=== PATIENT | male | born 1950 | race Caucasian/White ===

== ENCOUNTER 2017-02-15 16:15 | Inpatient (IN) | payer MEDICARE, OTHER ==
[~2017-02-15] VITALS: Ht 182.9 cm; Wt 90.7 kg
[~2017-02-15 16:15] MED LIST: ADVAIR 250-501 EACH INH; ASPIRIN325 MG PO; ATENOLOL100 MG PO; CARDURA XL8 MG PO; CARVEDILOL25 MG PO; CLARITIN10 M2 PO; CLONIDINE HCL0.1 MG PO; DILTIAZEM 24HR120 MG PO; FEROSUL325 MG PO; FISH OIL 1,2001 EAC5 PO; FUROSEMIDE40 MG PO; HYDROCORTISONE59 ML TOP; LISINOPRIL40 MG PO; MEDROL4 M1 PO; MULTI-DAY PLUS1 EAC1 PO; NICORETTE4 M1 BUCCAL; OSTERA TABLET1 EACH PO; PROAIR HFA8.5 GM INH; THIAMINE HCL100 MG PO
--- OUTSIDE RECORDS SUMMARY | 2017-02-15 17:17 | XMS ---
Demographics + + + | Address | [address] | | | [place] [address] | + + + | Preferred Language | Unknown | + + + | Marital Status | Unknown | + + + | Roman Catholic Affiliation | Unknown | + + + | Race | Unknown | + + + | Ethnic Group | Unknown | + + + Author + + + | Author | [facility] | + + + | Organization | [facility] | + + + | Address | [address] | | | [place] [address] | + + + | Phone | | + + + Care Team Providers + + + + | Care Stone Derrickman And Rigger Name | Role | Phone | + + + + Unavailable | Unavailable | + + + + PROBLEMS + + + + + + + + | Type | Condition | ICD9-CM | [id number] | Onset | Condition | SNOMED | | | | Code | Code | Dates | Status | Code | + + + + + + + + | Problem | Alcoholic | | K70.10 | | Active | 5009641 | | | hepatitis | | | | | | | | without | | | | | | | | ascites | | | | | | + + + + + + + + | Problem | Cervical | M48.02 | | | Active | 59484778 | | | spinal | | | | | | | | stenosis | | | | | | + + + + + + + + | Problem | Left foot | M21.372 | | | Active | [id number] | | | drop | | | | | [address] | + + + + + + + + | Problem | Thiamine | | E51.9 | | Active | 592319089 | | | deficiency | | | | | | | | , | | | | | | | | unspecifie | | | | | | | | d | | | | | | + + + + + + + + | Problem | Anemia in | | D63.1 | | Active | 555165152 | | | chronic | | | | | | | | kidney | | | | | | | | disease | | | | | | + + + + + + + + | Problem | Low serum | R79.89 | | | Active | 604324621 | | | vitamin D | | | | | | + + + + + + + + | Problem | Diastolic | I50.30 | | | Active | 636435146 | | | heart | | | | | | | | failure | | | | | | + + + + + + + + | Problem | Chronic | | N18.3 | | Active | 340504597 | | | kidney | | | | | | | | disease, | | | | | | | | stage 3 | | | | | | + + + + + + + + | Problem | Hyperurice | | E79.0 | | Active | 47014992 | | | vivi | | | | | | + + + + + + + + | Problem | COPD | | J44.9 | | Active | 94783838 | | | (chronic | | | | | | | | obstructiv | | | | | | | | e | | | | | | | | pulmonary | | | | | | | | disease) | | | | | | + + + + + + + + | Problem | Atrial | I48.92 | | | Active | 4061037 | | | flutter | | | | | | + + + + + + + + | Problem | HTN | | I10 | | Active | 62337559 | | | (hypertens | | | | | | | | ion) | | | | | | + + + + + + + + | Assessment | HTN | | I10 | 26 November, | Active | 36601266 | | | (hypertens | | | 2017 | | | | | ion) | | | | | | + + + + + + + + | Problem | Colonic | | K63.5 | | Active | 39763023 | | | polyp | | | | | | + + + + + + + + ALLERGIES + + + + +--------+ | Substance | Reaction | Event Type | Date | Status | + + + + +--------+ | Banana | Unknown | Non Drug | November, | Active | | | | Allergy | | | + + + + +--------+ | Bee Stings | Unknown | Non Drug | November, | Active | | | | Allergy | | | + + + + +--------+ SOCIAL HISTORY No smoking Hx information available PLAN OF CARE VITAL SIGNS + + + + | Height | 6 ft 0 in in | 2016-12-01 | + + + + | Weight | 185.0 lbs | 2016-12-01 | + + + + | BMI | 25.09 kg/m2 | 2016-12-01 | + + + + | Heart Rate | 47 /min | 2016-12-01 | + + + + | Blood pressure systolic | 137 mm Hg | 2016-12-01 | + + + + | Blood pressure diastolic | 66 mm Hg | 2016-12-01 | + + + + MEDICATIONS + + + + + + + +--------+ | Medicati | Instruct | Dosage | Frequenc | Start | End Date | Duration | Status | | on | ions | | y | Date | | | | + + + + + + + +--------+ | Cardura | Orally | 1 tablet | | | | | Active | | 8 MG | Once a | | | | | | | | | day - | | | | | | | | | FOR HIGH | | | | | | | | | BLOOD | | | | | | | | | PRESSURE | | | | | | | + + + + + + + +--------+ | Fish Oil | | | 12h | | | | Active | + + + + + + + +--------+ | Lisinopr | Orally | 1 tablet | 24h | 25 Apr, | | | Active | | il 40 mg | Once a | | | 2015 | | | | | | day | | | | | | | + + + + + + + +--------+ | Thiamine | Orally | 1 tablet | 12h | 06 Feb, | | | Active | | HCl 100 | Twice a | | | 2016 | | | | | mg | day | | | | | | | + + + + + + + +--------+ | Diltiaze | Orally | 1 tablet | 24h | | | | Active | | m HCl | once | before | | | | | | | 120 MG | daily | meals | | | | | | + + + + + + + +--------+ | Albutero | Inhalati | 2 puffs | 4h | 28 November, | | 30 | Active | | l | on every | as | | 2016 | | day(s) | | | Sulfate | 4 hrs | needed | | | | | | | HFA 108 | | | | | | | | | (90 | | | | | | | | | Base) | | | | | | | | | MCG/ACT | | | | | | | | + + + + + + + +--------+ | Vitamin | Orally | 2 tablet | 24h | Aug, | Dec, | 30 | Active | | D | Once a | | | 2017 | 2017 | day(s) | | | (Choleca | day | | | | | | | | lciferol | | | | | | | | | ) 1000 | | | | | | | | | UNIT | | | | | | | | + + + + + + + +--------+ | Advair | Inhalati | 1 puff | 12h | | | | Active | | Diskus | on Twice | | | | | | | | 250-50 | a day | | | | | | | | MCG/DOSE | | | | | | | | + + + + + + + +--------+ | Carvedil | Orally | 1 tablet | | | | | Active | | ol 25 MG | Twice a | | | | | | | | | day for | | | | | | | | | Atrial | | | | | | | | | fibrilla | | | | | | | | | tion, | | | | | | | | | High | | | | | | | | | blood | | | | | | | | | pressure | | | | | | | + + + + + + + +--------+ | Multi | | | | | | | Active | | Vitamin | | | | | | | | | Daily | | | | | | | | + + + + + + + +--------+ | Lasix 40 | Orally | 1 tablet | | | | | Active | | mg | To be | | | | | | | | | taken | | | | | | | | | twice a | | | | | | | | | day, | | | | | | | | | once in | | | | | | | | | the | | | | | | | | | morning | | | | | | | | | and once | | | | | | | | | in the | | | | | | | | | afternoo | | | | | | | | | n - | | | | | | | | | DIURETIC | | | | | | | + + + + + + + +--------+ | Hydrocor | External | 1 | 12h | 10 Feb, | | | Active | | tisone | ly Twice | applicat | | 2017 | | | | | 2.5 % | a day | ion to | | | | | | | | | affected | | | | | | | | | area | | | | | | + + + + + + + +--------+ | Aspirin | Oral | | 24h | | | | Active | | 325 mg | daily | | | | | | | + + + + + + + +--------+ RESULTS No Results PROCEDURES + + + + + | Procedure | Date Ordered | Related Diagnosis | Body Site | + + + + + | Office Visit, Est | December 01, 2016 | | | | Pt., Level 3 | | | | + + + + + IMMUNIZATIONS No Known Immunizations"
--- NOTE | 2017-02-15 19:50 | NUR ---
PT ARRIVED VIA [facility] AT 0. ASSESSMENT COMPLETED. PT IS ALERT/ORIENTED, SLOW TO RESPOND. LUNGS CLEAR, DIM IN BASES, RA. HR IRREGULAR, PLACED ON TELE #9. BOWEL TONES ACTIVE, DENIES NAUSEA. DENIES PAIN. SKIN IS DRY, SCATTERED BRUISES NOTED. GROIN APPEARS REDDENED. IV PATENT, INFUSING WNL. DENIES NEEDS AT THIS TIME.
--- NOTE | 2017-02-15 20:30 | NUR ---
PT SAT AT SIDE OF BED AND ATTEMPTED TO USE URINAL, WAS UNABLE. REMOVED SHORTS AND UNDERWEAR, CLEANSED SKIN WITH BARRIER WIPES. PT ATTEMPTED TO USE URINAL AGAIN ONCE BACK IN BED AND WAS ABLE TO VOID 200ML, URINE SAMPLE SENT.
--- NOTE | 2017-02-15 21:30 | NUR ---
FIRST UNIT OF BLOOD STARTED AT THIS TIME, BLOOD CHECKED WITH SECOND RN, MORIAH. CONSENT IN CHART. WILL CONTINUE TO MONITOR.
--- NOTE | 2017-02-15 21:45 | NUR ---
RECHECKED PT'S VITAL SIGNS, NO S/SX OF REACTION. RATE INCREASED ON PUMP. PT RESTING WITH EYES CLOSED, DENIES FURTHER REQUESTS.
--- NOTE | 2017-02-15 23:14 | NUR ---
PT CURRENTLY SLEEPING, NO APPARENT DISTRESS. RESPIRATIONS ARE EVEN AND UNLABORED. TELE #9, HR:75 AND SINUS RHYTHM. BLOOD CONTINUES TO INFUSE WNL. WILL CONTINUE TO MONITOR.
--- NOTE | 2017-02-16 00:05 | NUR ---
FIRST UNIT OF BLOOD COMPLETED. PT TOLERATED WELL. RESTING COMFORTABLY. NO S/SX OF ADVERSE REACTION. WILL CONTINUE TO MONITOR.
--- NOTE | 2017-02-16 00:20 | NUR ---
SECOND UNIT OF BLOOD STARTED AT THIS TIME, CHECKED WITH SECOND RNMORIAH. ASSESSMENT COMPLETED. NO CHANGES FROM PREVIOUS ASSESSMENT. WILL CONTINUE TO MONITOR.
--- NOTE | 2017-02-16 00:35 | NUR ---
VITAL SIGNS TAKEN. NO S/SX OF ADVERSE REACTION. RATE INCREASED. PT DENIES REQUESTS AT THIS TIME, RESTING COMFORTABLY.
--- NOTE | 2017-02-16 02:10 | NUR ---
PT CALLED AND REQUESTED TO USE THE BATHROOM, STATED HE FELT LIKE HE NEEDED TO HAVE A BM. UP TO [facility] WITH 2-PA PIVOT TRANSFER. PT TOLERATED WELL. PT SAT ON COMMODE AND VOIDED BUT WAS UNABLE TO HAVE BM. RETURNED TO BED. DENIES REQUESTS AT THIS TIME.
--- NOTE | 2017-02-16 02:45 | NUR ---
SECOND UNIT OF BLOOD COMPLETED. PT DENIES SOB, NO S/SX OF REACTION. PT DENIES NEEDS AT THIS TIME, WILL CONTINUE TO MONITOR.
--- NOTE | 2017-02-16 04:51 | NUR ---
ASSESSMENT COMPLETED. ORIENTED. DENIES PAIN. LUNGS CLEAR/DIMINISHED, RA. HR IRREGULAR, TELE #9. BOWEL TONES ACTIVE, DENIES NAUSEA. SKIN DRY, LOTION APPLIED TO HIS BACK. EDEMA PRESENT IN BILATERAL FEET. IV PATENT, INFUSING WNL. PT RESTING, DENIES NEEDS AT THIS TIME.
--- NOTE | 2017-02-16 04:58 | NUR ---
E.D. ADMIT. ALERT/ORIENTED. DENIES PAIN AND NAUSEA. RECEIVED 2 UNITS PRBC'S, 1 UNIT REMAINS ON HOLD, PT TOLERATED WELL. LUNGS DIMINISHED, RA. TELE #9, IRREGULAR HR. EDEMA IN BILATERAL FEET. REDDENED GROIN, SCHEDULED POWDER UNAVAILABLE DURING NIGHT, BARRIER WIPES AND CREAM USED. VOIDING QS. 2-PA WITH PIVOT TRANSFER TO [facility], WEAK, HAS BEEN USING MOTORIZED WHEELCHAIR AT HOME. IV PATENT, NS @75. SCHEDULED NEBS. DAILY ETOH DRINKER, CAN HAVE BEER WITH MEALS.
--- OUTSIDE RECORDS SUMMARY | 2017-02-16 06:05 | XMS ---
Demographics + + + | Address | [address] | | | [place] [address] | + + + | Preferred Language | Unknown | + + + | Marital Status | Unknown | + + + | Mormonism Affiliation | Unknown | + + + | Race | Unknown | + + + | Ethnic Group | Unknown | + + + Author + + + | Author | [facility] | + + + | Organization | [facility] | + + + | Address | [address] | | | [place] [address] | + + + | Phone | | + + + Care Team Providers + + + + | Care Registered Appraiser Name | Role | Phone | + + + + Unavailable | Unavailable | + + + + PROBLEMS + + + + + + + + | Type | Condition | ICD9-CM | [id number] | Onset | Condition | SNOMED | | | | Code | Code | Dates | Status | Code | + + + + + + + + | Problem | Alcoholic | | K70.10 | | Active | 2732165 | | | hepatitis | | | | | | | | without | | | | | | | | ascites | | | | | | + + + + + + + + | Problem | Cervical | M48.02 | | | Active | 38531637 | | | spinal | | | | | | | | stenosis | | | | | | + + + + + + + + | Problem | Left foot | M21.372 | | | Active | [phone] | | | drop | | | | | [address] | + + + + + + + + | Problem | Thiamine | | E51.9 | | Active | 688589571 | | | deficiency | | | | | | | | , | | | | | | | | unspecifie | | | | | | | | d | | | | | | + + + + + + + + | Problem | Anemia in | | D63.1 | | Active | 592932406 | | | chronic | | | | | | | | kidney | | | | | | | | disease | | | | | | + + + + + + + + | Problem | Low serum | R79.89 | | | Active | 455451554 | | | vitamin D | | | | | | + + + + + + + + | Problem | Diastolic | I50.30 | | | Active | 600558552 | | | heart | | | | | | | | failure | | | | | | + + + + + + + + | Problem | Chronic | | N18.3 | | Active | 134700542 | | | kidney | | | | | | | | disease, | | | | | | | | stage 3 | | | | | | + + + + + + + + | Problem | Hyperurice | | E79.0 | | Active | 97151352 | | | vivi | | | | | | + + + + + + + + | Problem | COPD | | J44.9 | | Active | 65906696 | | | (chronic | | | [...] | I48.92 | | | Active | 4316163 | | | flutter | | | | | | + + + + + + + + | Problem | HTN | | I10 | | Active | 92000825 | | | (hypertens | | | | | | | | ion) | | | | | | + + + + + + + + | Assessment | HTN | | I10 | 19 Apr, | Active | 72009384 | | | (hypertens | | | 2017 | | | | | ion) | | | | | | + + + + + + + + | Problem | Colonic | | K63.5 | | Active | 19575314 | | | polyp | | | | | | + + + + + + + + ALLERGIES + + + + +--------+ | Substance | Reaction | Event Type | Date | Status | + + + + +--------+ | Banana | Unknown | Non Drug | Oct, | Active | | | | Allergy | | | + + + + +--------+ | Bee Stings | Unknown | Non Drug | Oct, | Active | | | | Allergy | | | + + + + +--------+ SOCIAL HISTORY No smoking Hx information available PLAN OF CARE VITAL SIGNS + + + + | Height | 6 ft 0 in in | 2016-10-25 | + + + + | Weight | 189.7 lbs | 2016-10-25 | + + + + | BMI | 25.73 kg/m2 | 2016-10-25 | + + + + | Temperature | 98.6 degrees Fahrenheit | 2016-10-25 | + + + + | Heart Rate | 52 /min | 2016-10-25 | + + + + | Blood pressure systolic | 146 mm Hg | 2016-10-25 | + + + + | Blood pressure diastolic | 80 mm Hg | 2016-10-25 | + + + + MEDICATIONS + + + + + + + +--------+ | Medicati | Instruct | Dosage | Frequenc | Start | End Date | Duration | Status | | on | ions | | y | Date | | | | + + + + + + + +--------+ | Vitamin | Orally | 2 tablet | 24h | b, | 6 Jasen, | 30 | Active | | D [...] | on every | as | | 2015 | | day(s) | | | Sulfate [...] | ly Twice | applicat | | 2016 | | | | | 2.5 % [...] | + + + + + | Est Level III | October 25, 2016 | | | | Intermediate | | | | + + + + + IMMUNIZATIONS No Known Immunizations"
--- NOTE | 2017-02-16 07:19 | EKG ---
[facility] [address] [place] [address] Signed Atrial flutter with variable AV block Rightward axis Low voltage QRS Possible Inferior infarct (cited on or before 25-AUG-2016) ST \T\ T wave abnormality, consider lateral ischemia Abnormal ECG When compared with ECG of 25-AUG-2016 12:04, QRS axis shifted right Non-specific change in ST segment in Inferior leads Nonspecific T wave abnormality now evident in Inferior leads T wave inversion now evident in Anterolateral leads Confirmed by KANDI AGUERO MD ([id number]) on 02/16/2017 7:19:10 AM Electronically Signed By: KANDI AGUERO MD 02/16/17 0719 PATIENT NAME: ARABELLA GUZMAN Electrocardiogram DATE OF : 46 PHYSICIAN: KANDI AGUERO MD REPORT #: [id number] REPORT IS CONFIDENTIAL AND NOT TO BE RELEASED WITHOUT AUTHORIZATION
--- NOTE | 2017-02-16 09:12 | NUR ---
PATIENT SITTING UP IN BED EATING BREAKFAST. APPEARS COMFORBTLE, NO COMPLAINTS OF PAIN. DISCUSSED NICOTINE LOZENGER, PATIENT REFUSES AT THIS TIME, STATES " I DON'T NEED ANYTHING" FULL BODY ASSESMENT DONE. NO SHAKES OR TREMORS, PATIENT APPEARS CALM. BEER SERVED WITH BREAKFAST.
--- NOTE | 2017-02-16 10:26 | NUR ---
ASSISTED PATIENT WITH REPOSITIONING. PATIENT DID NOT DRINK BEER FROM BREAKFAST. PUT IT IN THE FRIDGE FOR PATIENT. PATIENT STATES "I AM JUST FEELING REALLY TIRED". MAG RIDER INFUSING NOW.
--- NOTE | 2017-02-16 14:51 | NUR ---
MED REC COMPLETE WITH [facility]IMART REFILL HISTORY AND DR OFFICE NOTE.
--- NOTE | 2017-02-16 16:23 | NUR ---
AWAKE IN BED DID AM CARE. EMPTY GARBAGE. CLEAN ROOM. SHOWERED. MOUTH CARE. HELPED PT TO AMBULATE TO CHAIR.
--- NOTE | 2017-02-16 17:00 | NUR ---
PATIENT WORKED WITH PHYSICAL THERAPY TODAY, NO COMPLAINTS OF PAIN. 2 PERSON ASSIST,PIVOT. AAOX3 CALLS ALFREDO. DRINKING BEER WITH MEALS. CALM AND COOPERATIVE. ATTEMPTED TO HAVE BM TODAY. GOOD I&O. LUNG SOUNDS COURSE AND DIMINISHED. NS@75ML/HR.
--- NOTE | 2017-02-16 18:27 | NUR ---
PT IS SITTING UP IN BED WATCHING TV. PT ASKED TO BE PULLED UP IN BED AND FOR THE URINAL.
--- NOTE | 2017-02-16 19:10 | NUR ---
BEDSIDE SHIFT REPORT RECEIVED FROM NICANOR DOWNEY. PT SITTING UP IN BED, CAREGIVER AT BEDSIDE. DENIES REQUESTS AT THIS TIME, WILL CONTINUE TO MONITOR.
--- NOTE | 2017-02-16 20:00 | NUR ---
R.T. IN AT THIS TIME TO GIVE BREATHING TREATMENT.
--- NOTE | 2017-02-16 21:00 | NUR ---
ASSESSMENT COMPLETED. ALERT/ORIENTED, DENIES PAIN. LUNGS CLEAR AND DIMINISHED, RA. HR IRREGULAR, TELE #9. BOWEL TONES ACTIVE, DENIES NAUSEA. MEDICATED POWDER APPLIED TO GROIN, REMAINS REDDENED. MODERATE EDEMA NOTED IN BILATERAL FEET. PT REPORTED ITCHING, LOTION APPLIED TO BACK WAS NOT ADEQUATE. SPOKE WITH DR. AGUERO WHO ORDERED A ONE TIME DOSE OF 25MG IV BENADRYL. PT DENIES NEEDS AT THIS TIME, WILL CONTINUE TO MONITOR.
--- NOTE | 2017-02-17 | NUR ---
PT SLEEPING AT THIS TIME. RESPIRATIONS EVEN AND UNLABORED. NO APPARENT DISTRESS. WILL CONTINUE TO MONITOR.
--- NOTE | 2017-02-17 02:20 | NUR ---
ASSESSMENT COMPLETED. DENIES PAIN AND NAUSEA. NO CHANGES FROM PREVIOUS ASSESSMENT. MONITORING FOR ETOH WITHDRAWAL, CIWA: 3. LOTION APPLIED TO BACK FOR ITCHING. DENIES FURTHER REQUESTS, CALL LIGHT IS WITHIN REACH.
--- NOTE | 2017-02-17 05:10 | NUR ---
ASSISTED PT TO SIDE OF BED TO USE URINAL, VOIDED AND THEN RETURNED TO BED. ASSESSMENT COMPLETED. EDEMA IN FEET APPERS IMPROVED, NO OTHER CHANGES FROM PREVIOUS ASSESSMENT. PT STATES HE IS TIRED AND GOING TO TRY TO SLEEP MORE, DENIES FURTHER REQUESTS.
--- NOTE | 2017-02-17 05:50 | NUR ---
PT SLEPT OFF AND ON THROUGHOUT NIGHT. DENIES PAIN AND NAUSEA. TELE #9, IRREGULAR HR. BACK HAS BEEN ITCHY, LOTION APPLIED PRN AND 25MG IV BENADRYL GIVEN ONCE. GROIN REMAINS RED, MEDICATED POWDER APPLIED. MONITORING FOR ETOH WITHDRAWAL, CIWA: 3. EDEMA IN FEET APPEARS IMPROVED. CARDIAC DIET, BEER WITH MEALS. 2-PA PIVOT TRANSFER. IV PATENT, NS @75.
[2017-02-17] MEDS ORDERED: MAGOX 400400 MG PO (08:24)
[2017-02-17] MEDS ORDERED: LORADAMED10 MG PO (08:25)
[2017-02-17] MEDS ORDERED: VITAMIN D31000 UNI1 PO (08:26)
--- NOTE | 2017-02-17 08:27 | NUR ---
Medications reconciled by pharmacist using PCP records, pharmacy records, visual inspection of medications and patient interview. Patient takes his diltiazem at night, I informed his RN and will schedule it for mario alberto
--- NOTE | 2017-02-17 09:00 | NUR ---
VS NOW STABLE. BP 136/72, POST ONE HOUR OF BP MEDICAITON ADMINISTRATION. PATIENT SITTING UP AT EDGE OF BED, USING URINAL. MOST OF BREAKFAST CONSUMED. NO COMPLAINTS OF PAIN. FULL BODY ASSSEMENT DONE.
--- NOTE | 2017-02-17 11:31 | NUR ---
INFUSING 1 UNIT PRBC. TOLERATING INFUSION WELL. RESTING ON SIDE NOW. VS STABLE. PATIENT STATES " I JUST FEEL REALLY TIRED RIGHT NOW." NO COMPLAINTS OF PAIN. ASSISTING PATIENT WITH REPOSITIONING.
--- NOTE | 2017-02-17 13:39 | NUR ---
BLOOD TRANSFUSION COMPLETED 1300, FLUSHED LINE. PATIENT SITTING ON EDGE OF BED. NOW GETTING UP TO POWERED WC. LINEN CHANGED PER ASSISTANT PROFESSOR OF MARINE BIOLOGY. APPEARS TO BE BREATHING EASY. CONTINUES TO COMPLAIN OF FEELING TIRED.
--- NOTE | 2017-02-17 13:50 | NUR ---
PT WAS TRANSFERED TO MOTOR WHEELCHAIR
--- NOTE | 2017-02-17 17:26 | NUR ---
PATIENT BACK IN BED, HAS BEEN UP IN POWER WITH PHYSICAL THERAPY. APPEARED TO BE TOLERATING ACTIVITY WELL. DRANK FULL BEER THIS AFTERNOON. PATIENT COMPLAINING THAT BEER UPSET STOMACH, PATIENT THEN APPEARED RESTLESS AND NOTED LIGHT TREMOR TO HANDS AND LEGS. CIWA 7. NOTIFIED DR. AGUERO. ADMINISTERED 1MG ATIVAN IV. PATIENT NOW RESTING WITH EYES CLOSED. APPEARS CALM.
--- NOTE | 2017-02-17 17:48 | NUR ---
PT IS RESTING IN BED WITH EYES CLOSED, RESPERATIONS EVEN. PT WOKE UP FOR VITALS THEN FELL BACK ASLEEP. PT DID NOT NEE ANYTHING ELSE
--- NOTE | 2017-02-17 18:51 | NUR ---
PT REFUSED TO SHOWER, NURSE WAS OKAY WITH IT BECAUSE HE SHOWERED YESTERDAY.
--- NOTE | 2017-02-17 19:15 | NUR ---
SHIFT REPORT RECEIVED FROM NICANOR DOWNEY. PT IS CURRENTLY UP AT [facility] TO HAVE BM, ALLOWING FOR PRIVACY AT THIS TIME. WILL CONTINUE TO MONITOR.
--- NOTE | 2017-02-17 21:38 | NUR ---
ASSESSMENT COMPLETED. ALERT/ORIENTED. DENIES PAIN. LUNGS DIMINISHED WITH EXPIRATORY WHEEZES NOTED, RA. HR IRREGULAR. BOWEL TONES ACTIVE. PT UP AT SIDE OF BED VOIDING USING URINAL, ASSISTED HIM BACK INTO BED ONCE HE FINISHED. 2+ EDEMA NOTED IN LEFT FOOT, TRACE EDEMA IN RIGHT FOOT. BANDAGE TO LEFT GREAT TOE, PT'S WHEELCHAIR RAN OVER HIS TOE EARLIER TODAY. CIWA: 3. PT STATES HIS BACK IS ITCHY, DENIES NEED FOR BENADRYL. POWDER APPLIED TO GROIN. PT DENIES FURTHER REQUESTS AT THIS TIME.
--- NOTE | 2017-02-17 22:19 | NUR ---
PT SLEEPING AT THIS TIME, NO APPARENT DISTRESS. RESPIRATIONS EVEN AND UNLABORED. WILL CONTINUE TO MONITOR.
--- NOTE | 2017-02-17 23:38 | NUR ---
PT APPEARED AGITATED, CIWA: 9. 1 MG IV ATIVAN ADMINISTERED. PT NOW RESTING IN BED AND DENIES FURTHER REQUESTS. WILL CONTINUE TO MONITOR.
--- NOTE | 2017-02-18 02:24 | NUR ---
PT UP TO SIDE OF BED TO VOID, RETURNED TO BED. PT AGITATED AND ITCHING, CIWA: 9, 1MG IV ATIVAN GIVEN. ASSESSMENT COMPLETED. LUNGS SOUND DIM, NO LONGER HEAR EXIRATORY WHEEZE. NO OTHER CHANGES FROM PREVIOUS ASSESSMENT. WILL CONTINUE TO MONITOR.
--- NOTE | 2017-02-18 03:15 | NUR ---
PT AGITATION INCREASING AGAIN, 1MG IV ATIVAN GIVEN. R.T. CALLED TO GIVE PT BREATHING TREATMENT. PT REPOSITIONED IN BED. WILL CONTINUE TO MONITOR.
--- NOTE | 2017-02-18 04:38 | NUR ---
PT AGITATED, CIWA:10. 1MG IV ATIVAN GIVEN. PT REPOSITIONED IN BED. AFTER ADMINISTRATION OF MED, PT RESTING COMFORTABLY. WILL CONTINUE TO MONITOR.
--- NOTE | 2017-02-18 05:17 | NUR ---
PT HAVING INCREASED AGITATION/ANXIETY, CIWA 9-10, REQUIRING PRN ATIVAN. ORIENTED. NO PAIN. LUNGS DIM, RA. IRREGULAR HR. BOWEL TONES ACTIVE, NO NAUSEA. CARDIAC DIET, MAY HAVE BEER WITH MEALS. 2+EDEMA IN LEFT FOOT, DRESSING TO LEFT GREAT TOE, PT HIT TOE WITH HIS MOTORIZED WHEELCHAIR AND IT HAS BLED A SMALL AMOUNT. IV PATENT, NS @75. USING URINAL, UO QS. 2-PA/PIVOT TRANSFER.
--- NOTE | 2017-02-18 08:00 | NUR ---
PATIENT SITTING ON EDGE OF BED, SHAKY, RESTLESS. APPEARS MORE CONFUSED, AND DECREASED MOTOR FUNCTION. ATIVAN ADMINISTERED. CIWA 9. NOTIFIED DR. AGUERO PER VIA PHONE LEFT MESSAGE. PROVIDING 1 ON 1 WHILE PATIENT SITTING ON EDGE OF BED. INCREASED FALL RISK. PATIENT EATING BLUEBERRY MUFFIN. BREATHING TX ADMINISTERED. NOTED WHEEZING IN LOWER BASES RIGOBERTO. RESOLVED AFTER DUO-NEB. VS STABLE. MORNING MEDICATIONS ADMINISTERED.
--- NOTE | 2017-02-18 08:29 | NUR ---
DR. AGUERO ROUNDED ON PATIENT. CIWA 11. PATIENT SHAKING ON EDGE OF BED, ORDERED TO ADMINISTER 2MG OF ATIVAN IV, AND TO TRANSFER TO UNIT FOR ACTIVE ETOH WD. PATIENT NOW LAYING ON SIDE AND APPEARS CALM. BREATHING EASY, RR 14. BED ALARM ON.
--- NOTE | 2017-02-18 09:06 | NUR ---
REPORT HANDOFF TO MARTÍNEZ VICK. SBAR REPORT. VS STABLE. ASSISTED WITH CHANGING LINEN.
--- NOTE | 2017-02-18 09:12 | NUR ---
PT ARRIVED TO ROOM 129 VIA BED FROM MED/SURG. REPORT FROM NASREEN RAINEY. PT HAD ATIVAN AT 0730 AND IS SLEEPING WITH REU. MONITOR ON, SATS 94% ON RA, HR 67, BP 132/93., RESP 18. LINEN CHANGED D/T PT INCONT OF URINE. IVF NORMAL SALINE RUNNING AT 75 MLS/HR. ASSESSMENT COMPLETED - LUNGS WITH EXP WHEEZES BILAT. PT RESTING ON RIGHT SIDE.
--- NOTE | 2017-02-18 09:39 | NUR ---
PT AGITATED WHEN MOVED, CALLING OUT AND GROWLING. MEDICATED WITH ATIVAN 2MG IV.
--- NOTE | 2017-02-18 09:57 | NUR ---
PT SLEEPING ON RIGHT SIDE, SATS 88-89% ON RA. 02 PLACED AT 2L PER OXYMASK, SATS 93-95%.
--- NOTE | 2017-02-18 10:17 | NUR ---
PT SLEEPING - 20 GAUGE IV INSERTED IN RIGHT FOREARM WITHOUT PROBLEMS AND FLUSHED WITH 10 MLS NORMAL SALINE. WINDOW DRESSING IN PLACE AND IV SITE SECURED WITH COBAN.
--- NOTE | 2017-02-18 10:29 | NUR ---
SATS 97% ON 2L, 02 DECREASED TO 1L PER NC.
--- NOTE | 2017-02-18 11:19 | NUR ---
PT OPENS EYES TO VOICE, TAKING YESSI OF WATER. PHENOBARBITAL 30MG GIVEN PO WITH SIPS OF WATER. WHEN ASKED IF HE NEEDED TO URINATE HE STATES "YES". URINAL IN PLACE AND PT VOIDED 250 MLS CLEAR YELLOW URINE.
--- NOTE | 2017-02-18 12:34 | NUR ---
DR. AGUERO IN TO CHECK ON PT. ASSESSMENT COMPLETED, R.T. HERE AND NEB TX GIVEN.
--- NOTE | 2017-02-18 13:27 | NUR ---
pt given 2 mg iv ativan for rass of +1
--- NOTE | 2017-02-18 16:44 | NUR ---
DR. CONCEPCION IN TO ASSESS PT. LEFT GREAT TOE NAIL REMOVED - BACITRACIN AND GAUZE DRESSING APPLIED TO LEFT GREAT TOE. ASSESSMENT COMPLETED PT NOW RESTING ON RIGHT SIDE AND SLEEPING WITH HOB ELEVATED, SATS 95%.
--- NOTE | 2017-02-18 17:27 | NUR ---
PT MEDICATED WITH DIAZEPAM 30 MG IV. NICOTINE PATCH 21 MG APPLIED TO LEFT UPPER ARM. PT RESTING WITH HOB ELEVATED. 02 SATS DECREASED TO 84% AND 02 PER OXYMASK APPLIED. SATS 100% ON 6L PER OXYMASK
--- NOTE | 2017-02-18 18:11 | NUR ---
LUNA CATH INSERTED WITHOUT PROBLEMS. CLEAR YELLOW URINE RETURN. HEEL PROTECTORS IN PLACE AND MITTS ON HANDS TO PROTECT LINES AND LUNA.
--- NOTE | 2017-02-18 18:43 | NUR ---
PT SLEEPING BUT STILL SLIGHTLY RESTLESS. 02 ON AT 6L PER OXYMASK AND SATS 97%. PT OCCASIONALLY PULLING AT MITTS. BED ALARM ON
--- NOTE | 2017-02-18 20:07 | NUR ---
DR. CONCEPCION PRESENT ON UNIT AT START OF SHIFT, NEW ORDERS FOR MG RIDER, OBSERVED PT CONDITION.
--- NOTE | 2017-02-18 21:03 | NUR ---
HR 47-52 AFLUTTER, BP 145/73, NEW ORDERS PER DR. CONCEPCION, VALIUM Q 6 HRS RATHER THAN Q 4 HRS.
--- NOTE | 2017-02-18 22:26 | NUR ---
PT NODS NO WHEN ASKED IF IN PAIN, SLURRED SPEECH REGARDING , STRONG COUGH EFFORT, RASS +1, VERBALIZES [place] HE LIVES IN, BILAT HAND MITTS REWRAPPED.
--- NOTE | 2017-02-19 02:46 | NUR ---
Pt said "no" when asked if he is experiencing pain.
--- NOTE | 2017-02-19 06:22 | NUR ---
PT IS RESTING AT THIS TIME, WAKES AGITATED/RESTLESS PERIODICALLY, REACHES FOR LINES, TUBES, WIRES. A/O TO SELF, PLACE, YEAR, . PERRL, LUNG SOUNDS VARY, NC 2 LPM. BP 120-160'S, HR AFLUTTER, RATE CONTROLLED, RR 20, BT HYPOACTIVE, FC DRAINING YELLOW/DIMAS CLEAR. A.M. LABS DRAWN. PERFUSION WNL, ORAL CARE TOOTHETTES. HOB ELEVATED, FOAM BOOTS BILAT FEET, L TOE DRESSING CDI. OCCASIONALLY MOANS, ACE, REPOSITIONED REGULARLY OTHER THAN WHEN AGITATED. CIWA SCALE AND RESTRAINT ASSESSMENT REGULARY. DIAZEPAM IVP FOR DT'S.
--- NOTE | 2017-02-19 07:09 | NUR ---
RESTRAINT ORDER ON FRONT OF CHART.
--- NOTE | 2017-02-19 08:24 | NUR ---
ASSESSMENT COMPLETED. PT RESTING WITH HOB ELEVATED AND HEAD REPOSITIONED ON PILLOW. R.T. HERE AND NEB TX GIVEN - SATS 100% ON 2L PER NC. LUNA DRAINING YELLOW URINE - MONITOR UO HOURLY.
--- NOTE | 2017-02-19 11:17 | NUR ---
PT AWAKE & ORIENTED AT THIS TIME. BEDBATH GIVEN AND REPOSITIONED IN BED. HOB UPRIGHT PER PT REQUEST. PT FOLLOWING COMMANDS WITHOUT PROBLEMS. DR. CONCEPCION IN TO ASSESS PT.
--- NOTE | 2017-02-19 12:22 | NUR ---
RT HERE FOR NEB TX. ASSESSMENT COMPLETED, DENIES C/O AT THIS TIME. WARM BLANKET GIVEN PER PT REQUEST. HOB REMAINS ELEVATED. TALKED WITH PT ABOUT ABDOMINAL CT ORDERED BY DR. CONCEPCION - PT STATES UNDERSTANDING. PT DENIES NEED FOR MEDICATION AT THIS TIME - MINIMAL TREMORS NOTED.
--- NOTE | 2017-02-19 13:05 | NUR ---
US TECH HERE FOR ABD .
--- NOTE | 2017-02-19 13:30 | NUR ---
PT REPOSITIONED UP IN BED WITH PILLOWS UNDER BOTH HIPS. PT STATES HE LIKES TO SIT UP IN ORDER TO SEE OUT THE WINDOW.
--- NOTE | 2017-02-19 14:35 | NUR ---
AFTER ULTRA SOUND OF THE ABD COMPLETED, P.T. HER TO WORK WITH PT. PT SAT ON EDGE OF BED BUT WAS NOT ABLE TO STAND WITH ASSIST. PT RETURNED TO BED, BROTHER OF PT HERE TO VISIT WITH PT. PRBC HERE AND FIRST UNIT STARTED.
--- NOTE | 2017-02-19 16:34 | NUR ---
PT REMAINS ORIENTED, TALKING WITH BROTHER. ASSESSMENT COMPLETED, R.T. HERE AND GAVE NEB TX. PT ALSO USED INSENTIVE SPIROMETER UP TO [address] CONCEPCION IN TO TALK WITH BROTHER OF PT.
--- NOTE | 2017-02-19 17:31 | NUR ---
2ND UNIT PRBC STARTED. DR. PENA CONSULTED AND IN TO ASSESS PT FOR POSSIBLE EGD TOMORROW.
--- NOTE | 2017-02-19 20:00 | NUR ---
REPORT RECIEVED FROM DAY SHIFT. PT AWAKENS EASILY, AT FIRST SAID WRONG MONTH THEN STATED FEBRUARY CORRECTLY.PT DOES STATE HE IS FEELING BETTER. IS SL DROWSY. IS TREMULOUS. ASSISTED TO SIDE LAYING POSITION.
--- NOTE | 2017-02-19 20:31 | NUR ---
DR CONCEPCION NOTIFIED OF LOW URINE OUT AND ELEVATED BP. IVF DC'D.
--- NOTE | 2017-02-19 22:26 | NUR ---
PT SLEEPING. CONT TO MONITOR URINE OUTPUT.
--- NOTE | 2017-02-19 23:40 | NUR ---
PT AWAKENS TO VOICE. A LITTLE CONFUSED TO SITUAION AT FIRST BUT IS COOPERATIVE. ASSISTED TO REPOSITION AND PT CRIES OUT WHEN MOVED AND DJOES SO WHEN ANY EXTREMITY IS MOVED. AFTER BEING ON L SIDE NOTED SATS DECREASED TO88, 02 3 L APPLIED IS A MOUTH BREATHER. DR CONCEPCION UPDATED ON U/O AND BP.
--- NOTE | 2017-02-20 00:28 | NUR ---
WANTED TO SIT AT BEDSIDE. ASSISTED TO SIT UP WHICH REQUIRED MAX ASSIST. PT STATING HE JUST WANTED TO SIT UP. WORK OF BREATHING INCREASED WITH THIS. AFTER BACK TO LAYING POSITION WITH HOB UP PT THEN AFFIRMED SOB, RR 30'S. ALTTERNATELY C/O MILD NAUSEA THEN REUQESTING SOMETHING TO DRINK. GIVEN SIP 7-UP, WHICH PT STATES HELPS WITH NAUSEA. CIWA 10 GIVEN 10MG VALIUM SLOWLY.
--- NOTE | 2017-02-20 02:30 | NUR ---
CONT TO SLEEP.
--- NOTE | 2017-02-20 03:45 | NUR ---
AWAKE, WANTING TO BE REPOSITIONED. THOUGHT HE HAD BEEN BROUGHT A MUFFIN TO EAT. REPOSITIONED TO BACK AND THEN PT FELL BACK TO SLEEP.
--- NOTE | 2017-02-20 05:44 | NUR ---
SLEEPING AT THIS TIME.
--- NOTE | 2017-02-20 06:43 | NUR ---
URINE OUTPUT IMPROVED AFTER GIVEN LASIX IV. PT BECAME MILDLY AGITATED AND NAUSEATED AND WAS GIVEN 10MG VALIUM IV FOR ETOH WITHDRAWL AT 0025. HAS RESTED WELL SINCE. NO MORE C/O NAUSEA. BP IMPROVED AFTER HTN MEDS RESTARTED .
--- NOTE | 2017-02-20 08:10 | NUR ---
PT SLEEPING BUT AWAKENS TO VOICE. PT ALERT AND ORIENTED TO PLACE AND DATE. C/O OF PAIN IN RIGHT ELBOW WHEN MOVING ARM AND RATES PAIN "2/10", STATES "IT COMES AND GOES". VITAL SIGNS COMPLETED AND ORAL CARE DONE. R.T. HERE AND NEB TX GIVEN. BROTHER IN TO VISIT WITH PT AND SEE DR CONCEPCION ABOUT PLAN OF CARE.
--- NOTE | 2017-02-20 09:25 | NUR ---
PT UP TO BSC WITH USE OF CEILING LIFT AND 2 PERSON STANDBY ASSIST. PT UNABLE TO HAVE BM AT THIS TIME. RETURNED TO BED WITH CEILING LIFT AND PT NOW RESTING ON RIGHT SIDE WITH PILLOW TO BACK. PT C/O OF RIGHT FOOT PAIN, STATES "IT'S BOTHERED ME FOR A FEW MONTHS. HEEL PROTECTOR ON RIGHT FOOT PER PT REQUEST.
--- NOTE | 2017-02-20 12:21 | NUR ---
ASSESSMENT COMPLETED, BP 191/96 DR. CONCEPCION NOTIFIED AND ORDERS RECIEVED. PT STATES TYLENOL HELPED HIS JOINT PAIN. PT RESTING WITH HOB ELEVATED. XRAY HERE XRAY COMPLETED OF RIGHT ELBOW AND RIGHT ANKLE.
--- NOTE | 2017-02-20 14:36 | NUR ---
AFTER SUPPOSITORY GIVEN PT UP TO BSC WITH CLINICAL TRIAL LEADER Sherif CUNNINGHAM. PT HAD LARGE BLACK FORMED BM, HEME TEST +. PT RETURNED TO BED USING CEILING LIFT AND 2 PERSON STANDBY ASSIST. SPONGE BATH GIVEN AND PT RESTING WITH HOB ELEVATED. I/O'S COMPLETED.
--- NOTE | 2017-02-20 18:55 | NUR ---
PT RESTING IN BED WITH HOB ELEVATED, DENIES NEED TO USE URINAL AT THIS TIME.
--- NOTE | 2017-02-20 19:13 | NUR ---
PT USED URINAL WITH HELP AND VOIDED 225 MLS CLEAR YELLOW URINE.
--- NOTE | 2017-02-20 22:21 | NUR ---
HAS BEEN SLEEPING, MOANING NOW, C/OBEING TOO HOT, COVERS OFF. DID VOID PER URINAL.
--- NOTE | 2017-02-20 23:18 | NUR ---
DR CONCEPCION CALLED RE PT BEING UNCOMFORTABLE. ORDER RECIEVED AND PT GIVEN NORCO PO. IS HUNGRY, TAKING PUDDING AND MILK. COOL CLOTH APPLIED TO HEAD EARLIER FOR C/O BEING TOO HOT.
--- NOTE | 2017-02-21 00:53 | NUR ---
ASSISTED TO REPOSITION TO OTHER SIDE. DENIES NEED TO VOID.
--- NOTE | 2017-02-21 02:30 | NUR ---
AWAKENED FOR MED. CONT TO CRY OUT WITH THE MOST MINIMAL MOVEMENT . PT DID TRY TO URINATE. BACK TO SLEEP.
--- NOTE | 2017-02-21 04:20 | NUR ---
PT CALLED OUT, NEEDING TO VOID. ASSISTED TO USE URINAL.
--- NOTE | 2017-02-21 06:26 | NUR ---
PT ASKING FOR HELP WITH VOIDING AND THEN WANTING TO TURN. PT THEN ATTEMPTED TO SIGN CONSENT FORM FOR EGD. WAS UNABLE TO WRITE DUE TO WEAKNESS AND TREMORS. DID GIVE VERBAL PERMISSION FOR PROCEDURE.
--- NOTE | 2017-02-21 08:00 | NUR ---
PT WAS INCONTENT OF URINE, COMPLETE LINE CHAGED COMPLETED AT THIS TIME. PT IS A TWO PERSON MAX ASSISTANCE TO GET HIM TO TURN IN BED. PT YELLS OUT WITH MOVEMENT DUE TO PAIN.
--- NOTE | 2017-02-21 08:11 | NUR ---
PT REPOSITIONED TO HIS BACK AND THEN MOVED UP IN BED. PT C/O'S DISCOMFORT GENERALIZED WITH MOVEMENT. PT REMAINS NPO AT THIS TIME.
--- NOTE | 2017-02-21 09:30 | NUR ---
PT TURNED AND ATTENDS PLACED DUE TO IV LAXIS GIVEN AT THIS TIME. PT CONTIOUES TO YELL OUT WITH TURNING. ALL AM MEDS ALSO GIVEN WITH SIPS OF WATER. AFTER THAT PT REMAINS NPO.
--- NOTE | 2017-02-21 09:51 | NUR ---
DR CONCEPCION INTO SEE PT AT THIS TIME, NEW ORDERS RECEIVED. PT APPEARS TO BE SLEEPING, BUT HE AWAKENS AND ANSWERS QUESTION WHEN ASKED.
--- NOTE | 2017-02-21 10:08 | NUR ---
PT GIVEN ONE NORCO PO AT THIS TIME FOR PAIN, HE ALSO VOIDED 200MLS OF YELLOW IN COLOR URINE.
--- NOTE | 2017-02-21 11:53 | NUR ---
PHYSICAL THERAPY INTO WORK WITH THE PATIENT AT THIS TIME.
--- NOTE | 2017-02-21 11:57 | NUR ---
TALKED WITH OR CHARGE NURSE, PT WILL GO FOR HIS EGD AFTER THE SCHUDLED CASES TODAY, SO IT WILL BE LATER THIS AFTERNOON.
--- NOTE | 2017-02-21 12:22 | NUR ---
OFFERED THE PATIENT THE URINAL TO VOID AT THIS TIME. PT DID NOT VOID, ATTENDS REMAINS DRY AT THIS TIME. PT RECEIVING NEB TX AT THIS TIME.
--- NOTE | 2017-02-21 13:17 | NUR ---
report received via telephone from Estephania VICK in CCU. pt to be transferred via bed to room 123 on medical floor.
--- NOTE | 2017-02-21 13:42 | NUR ---
PT VOIDED A VERY SMALL AMOUNT AT THIS TIME, BLADDER SCANED WITH 374 MLS NOTED.
--- NOTE | 2017-02-21 13:50 | NUR ---
DR CONCEPCION NOTIFIED OF POOR URINE OUTPUT. NO NEW ORDERS AT THIS TIME.
--- NOTE | 2017-02-21 13:57 | NUR ---
PT TRANSFERED VIA BED TO ROOM 123 AT THIS TIME. REPORT GIVEN TO ARIANNA VICK, ALL QUESTIONS ANSWERED, ALL PERSON BELONGINGS TAKEN TO THE PTS ROOM 123.
--- NOTE | 2017-02-21 14:29 | NUR ---
pt in room 123. personal meds at bedside accounted for and given to Tanya Pharmacist, to put in Electric Meter Setter locker. tags at bedside for med bags.
--- NOTE | 2017-02-21 15:22 | NUR ---
pt off floor with Fabiana RN to OR at 1520.
--- NOTE | 2017-02-21 17:04 | NUR ---
02/21/17 1704 Domonique Bradley 1700-PATIENT ARRIVED TO PACU ON 2L NC O2 SAT 100% PATIENT REACTIVE EYES OPEN RESPONDS TO QUESTIONS. WHEN ASKED ABOUT PAIN PATIENT REPORTS NOT OUT OF THE ORDINARY. SB HR 54. PATIENT SLEEPING
--- NOTE | 2017-02-21 18:15 | NUR ---
EGD TODAY. CLEAR LIQ DIET NOW. TOLERATING JUICE. TURNS Q2. DENIED PAIN MEDS. JASON PATCH RIGHT ARM. RIGHT ELBOW/RIGHT ANKLE LIDOCAINE PATCH. LEFT WRIST IV WORKS, BUT OVERDUE TO CHANGE. WORKING WITH PHYSICAL THERAPY. USES URINAL. INCONT AT TIMES. ATTEND IN PLACE. HOB >45*. SCROTUM SWOLLEN. GENERALIZED EDEMA. ROOM AIR.
--- NOTE | 2017-02-21 20:00 | NUR ---
RECEIVED REPORT AT 1900. FOUND PT IN BED NOT REALLY ABLE TO MOVE AND REALLY PAINFUL. PT IS NOT ABLE TO SPECIFY HIS PAIN AT THIS TIME. PT WAS TURNED TO HIS RIGHT SIDE REQUESTED BY HIM.
--- NOTE | 2017-02-21 20:45 | NUR ---
ALL LOBES ARE CLEAR, EDEMA IN BOTH ANKLES, FEET, ARMS AND HANDS IS +2, DORSALIS PEDIS PULSES AND BRACHIAL PULSES ARE +2, SBP WAS 190 BEFORE HTN/CARDIO MEDS WERE GIVEN. WILL TAKE BP AGAIN. PT WANTS TO STAY ON HIS RIGHT SIDE AT THIS TIME. PT IS VOIDING ADEQUATELY. PT IS TOLERATING FLUID WELL BUT NEEDS TO INCREASE HIS PO INTAKE SOME.
--- NOTE | 2017-02-22 01:00 | NUR ---
ASSISTED PT AGAIN WITH URINAL. PT HAS A TEMP OF 100.6, TYLENOL 650MG PO WAS GIVEN. PT SEEMS STILL VERY PAINFUL BUT IS UNABLE TO REALLY STATE WHERE HIS PAIN IS LOCATED. PT ALSO NEEDS A SPEECH EVAL. PT HAS ASPIRATION ISSUES WITH LIQUIDS.
--- NOTE | 2017-02-22 04:23 | NUR ---
PT HAS BEEN HAVING A HARD TIME TO GET COMFORTABLE. PT IS STILL NOT ABLE TO REALLY VOICE HIS DISCOMFORT. PT IS STILL NOT ABLE TO STATE THE AREA OF HIS PAIN. PT SEEMS PAINFUL ALL OVER BUT WHEN ASKED HE DENIES ANY PAIN.
--- NOTE | 2017-02-22 05:26 | NUR ---
PT HAD A HARD TIME GETTING COMFORTABLE THIS SHIFT. PT HAS NOT BEEN ABLE TO REALLY EXPRESS THE AREA OF HIS DISCOMFORT. PT SEEMS PAINFUL ALL OVER. PT ALSO HAD A TEMP OF 100.6, PO TYLENOL WAS GIVEN. TEMP NOW IS 97.9. ALL LOBES ARE CLEAR, O2 SATS ARE WNL ON ROOM AIR, I+O ARE ADEQUATE, PT STILL HAS +2 EDEMA IN BOTH LEGS AND ARMS. SPB BEFORE HIS 2100 BP MEDS WAS 190. ABOUT 1HR AFTER ADMINISTERING BP MEDS SBP WAS 163.
--- NOTE | 2017-02-22 07:50 | NUR ---
pt sleeping in bed comfortably. saline locked. elida patch on right shoulder. lidocaine right ankle and right elbow. continuous pulse ox in place. has difficulty verbalizing needs.
--- NOTE | 2017-02-22 08:54 | NUR ---
PT TAKES PILLS INDIVIDUALLY. DRANK APPLEJUICE WITH PILLS. MEAL TRAY SET UP IN FRONT OF PATIENT NOW. PAINFUL WITH MOVEMENT AND TOUCH. FEET TENDER TO TOUCH. ATTEMPTED TO USE URINAL. DRIBBLING. LASIX GIVEN. DUE TO VOID SOON. WILL MONITOR/HELP. PT ON PHONE WITH FAMILY MEMBER THIS MORNING. VERBAL DIFFICULTY. SLOW TO RESPOND. SITTING UP IN BED NOW.
--- NOTE | 2017-02-22 10:37 | NUR ---
PT IS RESTING SAFELY IN BED WITH EYES CLOSED, RESPERATIONS EVEN. PT WOKE UP FOR VITALS THEN FELL BACK ASLEEP, PT DID NOT NEED ANYTHING ELSE
--- NOTE | 2017-02-22 11:09 | NUR ---
pt had loose black stool. partially incontinent in bed. pt hoyered to BSC via sling jude. pt sitting on BSC now with call light in reach. bowel prep in hand.
--- NOTE | 2017-02-22 13:38 | NUR ---
pt refuses physical therapy despite education about benefits of therapy. MD will be notified.
--- NOTE | 2017-02-22 14:54 | NUR ---
PT IS RESTING IN BED SAFELY WITH CALL LIGHT IN REACH AND EYES CLOSED, RESPERATIONS EVEN. PT WOKE UP FOR VITALS BUT THEN BACK TO SLEEP, DID REMIND PT BEFORE HE FELL BACK ASLEEP TO WORK ON DRINKING HIS BOWEL PREP
--- NOTE | 2017-02-22 16:20 | NUR ---
FAXED CHART NOTES TO [facility] INCLUDING FACESHEET, ER NOTES, H AND P, PROG NOTES IMAGING, MEDS, LABS AND PT NOTES
--- NOTE | 2017-02-22 16:46 | NUR ---
PT LETHARGIC. NOT DRINKING BOWEL PREP BETWEEN TIMES STAFF ARE IN ROOM. RN NOW GOING INTO PT ROOM TO GIVE SIPS OF PREP Q15M. PT ONLY TAKES 2-3 SIPS PER VISIT.
--- NOTE | 2017-02-22 17:38 | NUR ---
BOWEL PREP FOR COLONOSCOPY TOMORROW. STAFF HAVING TO GO INTO ROOM Q15M TO GIVE 2-4 SIPS. NEED TO ENCOURAGE PT TO DRINK PREP. LOOSE BLACK STOOL TODAY BEFORE PREP. TAKING IRON PILLS. LETHARGIC. VERY SLEEPY. CLEAR LIQUID DIET. PAINFUL GENERALIZED, BUT MORE ON RIGHT ELBOW/ANKLE. ASPERCREAM AT BEDSIDE.
--- NOTE | 2017-02-22 18:13 | NUR ---
PT DOES NOT CALL FOR INCONTINENCE. 2 RNs ASSISTED PT IN CLEANING UP BOWEL INCONTINENCE AND CONTINUING TO DRINK BOWEL PREP. NEW CHUX AND ATTEND IN PLACE. ASSISTED WITH URINAL. 125ML UO.
--- NOTE | 2017-02-22 18:29 | NUR ---
PT IS RESTING IN BED WITH EYES CLOSED,RESPERATION EVEN. PT WOKE UP FOR VITALS AND TOOK 3 DRINKS OF BOWEL PREP BEFORE FALLING BACK ASLEEP, PT NEVER RECIEVED A CLEAR LIQUID TRY I HAVE ASKED THE KITCHEN TO SEND ONE UP
--- NOTE | 2017-02-22 20:00 | NUR ---
RECEIVED REPORT AT 1900. FOUND PT IN BED TRYING TO DRINK THE BOWEL PREP. DAY RN STATED THAT IT HAS BEEN A STRUGGLE FOR THIS PT TO DRINK IT. OVERALL PT IS MORE ALERT THAN LAST SHIFT.
--- NOTE | 2017-02-22 22:00 | NUR ---
BOWEL PREP AND CLONOSCOPY HAVE BEEN D/C BY MD CONCEPCION. PT WILL BE PLACED IN A FACILITY. COLONOSCOPY WILL BE DONE AT A LATER DATE. ALL LOBES ARE CLEAR EVEN THOUGH PT HAS SOME PROBLEMS WITH ASPIRATION WHEN DRINKING FLUIDS. PT IS STILL VERY WEAK AND PAINFUL BUT MORE ALERT OVERALL. V/S ARE WNL. EDEMA IN ALL EXTREMITIES IS STILL +2 AND SO IS EDEMA ON SCROTUM. NO OTHER ISSUES NOTED SO FAR.
--- NOTE | 2017-02-23 01:51 | NUR ---
PT IS STILL VERY UNCOMFORTABLE AND NEEDS TO BE REPOSITIONED FREQUENTLY. PT AT TIMES IS MORE ALERT THAN AT OTHER TIMES. URINE OUTPUT IS ADEQUATE, FLUIDS ARE OFFERED EACH TIME I ENTER HIS ROOM. NO NEW ISSUES NOTED AT THIS TIME.
--- NOTE | 2017-02-23 03:13 | NUR ---
ASSISTED PT WITH SITTING AT SIDE OF BED FOR A FEW MINUTES. PT NOW IS BACK IN BED. PT IS INSISTING ON LAYING ON HIS RIGHT SIDE REGARDLESS OF THE EDUCATION HE RECEIVED IN REGARDS TO TURNING.
--- NOTE | 2017-02-23 05:37 | NUR ---
PT AGAIN HAD A VERY UNCOMFORTABLE NIGHT. PT REFUSED ALL PAIN MEDICATION AVAILABLE TO HIM. PT WAS TURNED OFTEN AND CLEANED UP OFTEN. ROM WAS ALSO DONE WITH HIS LEGS. PO FLUIDS WERE OFFERED WITH EACH ENCOUNTER. PT AT THIS TIME HAS A TEMP OF 100.4. PT REFUSES TYLENOL AVAILABLE TO HIM. THERE HAS BEEN NO CHANGE IS THIS PT STATUS.
--- NOTE | 2017-02-23 07:26 | NUR ---
RECIEVED BEDSIDE REPORT FROM NICANOR NEGRON. PT IS SLEEPING, BREATHING EVEN AND UNLABORED.
--- NOTE | 2017-02-23 09:58 | NUR ---
PT STATES HE IS DOING WELL. IN BED AT THIS TIME. NEEDS ASSISTANCE SETTING UP FOOD TRAY, BUT CAN FEED HIMSELF.
--- NOTE | 2017-02-23 10:09 | NUR ---
PT HAD JUST FINISHED BREAKFAST AND IS SITTING UP IN BED WITH CALL LIGHT IN REACH. PT DID NOT NEED ANYTHING ELSE
--- NOTE | 2017-02-23 11:31 | NUR ---
COLLECTED URINE SAMPLE BY STERILE STRAIGHT CATH. PT TOLERATED PROCEDURE WELL. SAMPLE SENT TO LAB. LAB AWARE. 400ML OUT.
--- NOTE | 2017-02-23 11:53 | NUR ---
BED BATH COMPLETE, PT REPOSITIONED TO R SIDE. PT C/O PAIN WITH MOVEMENT.
--- NOTE | 2017-02-23 11:56 | NUR ---
PT WAS GIVEN A COMPLETE BEDBATH AND REPOSISTIONED ON HIS RIGHT SIDE. PT ASKED FOR HIS GLASSES
--- NOTE | 2017-02-23 14:25 | NUR ---
PT IS RESTING IN BED SAFELY WITH CALL LIGHT IN REACH AND EYES LOSED, RESPERATIONS EVEN. PT WOKE UP FOR VITALS STATED HE DID NOT NEED ANYTHING AT THE MOMENT THEN WENT BACK TO SLEEP
--- NOTE | 2017-02-23 17:07 | NUR ---
PT BEDBOUND THIS SHIFT, REFUSED TO GET UP D/T PAIN. PT C/O PAIN WITH TOUCH OR MOVEMENT. MAG RIDER AND PO MAG-OXIDE GIVEN. PT TOLERATED PO INTAKE WELL, INCONT OF URINE MOST OF SHIFT. PT PREFERS TO REST AND NOT GET WOKEN UP.
--- NOTE | 2017-02-23 18:15 | NUR ---
PT IS SITTING UP IN BED, BROTHER IS IN ROOM HELPING HIM SET UP HIS DINNER. PT DID NOT NEED ANYTHING ELSE AT THE MOMENT
--- NOTE | 2017-02-23 22:00 | NUR ---
RECEIVED REPORT AT 1900. PT WAS IN BED SLEEPING WITH HIS BROTHER AT BEDSIDE.
--- NOTE | 2017-02-23 22:13 | NUR ---
ALL LOBES ARE DIMINISHED. PT OVERALL IS STILL VERY WEAK. PT DURING THIS ENCOUNTER WAS ALERT AND ABLE TO VOICE HIS COMPLAINTS AND NEEDS. ROM WAS DONE WITH ALL FOUR EXTREMITIES. ASPER CREAM WAS APPLIED, PT HOWEVER REFUSES TO CHANGE IV SITE. V/S ARE WNL OVERALL EXCEPT SBP WAS 160. PT IS AFEBRILE AT THIS TIME.
--- NOTE | 2017-02-23 23:13 | NUR ---
ASSISTED PT WITH SITTING AT THE SIDE OF THE BED. PT WAS SITTING UP FOR ABOUT 4 MINUTES. PT IS BACK IN BED NOW. PT WAS ABLE TO GRAM A CAN FROM MY HAND AND DRINK OUT OF IT.
--- NOTE | 2017-02-24 00:19 | NUR ---
PT IS SLEEPING AT THIS TIME.
--- NOTE | 2017-02-24 01:09 | NUR ---
PT WANTED TO SIT ON SIDE OF BED AGAIN. PT WAS NOT ABLE TO HOLD HIMSELF UP THIS TIME. PT NOW IS BACK IN BED.
--- NOTE | 2017-02-24 03:18 | NUR ---
PT HAS BEEN TURNED I10-18CYJ SINCE ABOUT MIDNIGHT. PT IS VERY UNCOMFORTABLE BUT STILL REFUSES ANY PAIN MEDS. FLUID INTAKE IS GOOD. FOOD INTAKE IS POOR.
--- NOTE | 2017-02-24 05:22 | NUR ---
PT ONCE AGAIN HAD A VERY UNCOMFORTABLE NIGHT. PT STILL REFUSES PAIN MEDS. PT HAS BEEN AFEBRILE SO FAR. PT WAS TURNED VERY FREQUENTLY ALL NIGHT. INTAKE AND OUTPUT ARE ADEQUATE. PT AT TIMES FEELS SHORT OF BREATH BUT O2 SATS WERE >92%. V/S OVERALL ARE OK. I TALKED TO PT ABOUT NOT REFUSING PT AGAIN BECAUSE HE ASKED ME HOW HE COULD GET STRONGER. V/S ARE WNL.
--- NOTE | 2017-02-24 07:38 | NUR ---
PATIENT REPOSTIONED AT 0700 PER CHIEF COMMERCIAL OFFICER, PATIENT SLEEPING AT THIS TIME. PATIENT WAS AWAKE MUCH OF THE NIGHT, PAINFUL AND REQUIRING FREQUENT REPOSITIONING. AT THIS TIME PATIENT IS SLEEPING WITH EVEN UNLABORED RESPIRATIONS.
--- NOTE | 2017-02-24 08:49 | NUR ---
patient eating breakfast, begins c/o sob. RT in room, patient repositioned. RN removes breakfast tray, patient given neb tx. Patient's O2 sats >95% during entire episode. Lungs CTA. However patient has increased respirations and respiratory effort.
--- NOTE | 2017-02-24 09:13 | NUR ---
THIS RN ASSISTS PATIENT WITH URINAL. REPOSITIOED PATIENT. PATIENT VOIDS 100 MLS. PATIENTS BROTHER IN TO VISIT.
--- NOTE | 2017-02-24 09:31 | NUR ---
Patient resting in bed and talking with his brother. Patient very weak.
--- NOTE | 2017-02-24 09:44 | NUR ---
PT IN TO WORK WITH PATIENT, THIS RN ASSISTS.
--- NOTE | 2017-02-24 10:42 | NUR ---
THIS RN IN PATIENTS ROOM FOR ONE HOUR ASSISTING PT. PATIENT ABLE TO SIT AT SOB, HOWEVER TO WEAK TO TRANSFER. THIS RN USES LIFT AND SLING TO PLACE PATIENT IN HOME WHEELCHAIR SCOOTER. PATIENT ABLE TO NAVIGATE SCOOTER THROUGH HALLWAYS AND CCU, THEN BACK TO ROOM. CHANGED BED LINENS, PATIENT GOWN AND ASSISTED PATIENT WITH URINAL. OVERALL PATIENT TOLERATED VERY WELL, HOWEVER PATIENT IS EXTREMELY WEAK AND NEEDS MORE STREGTHENING EXERCISE. PATIENT'S BROTHER AT BEDSIDE. PATIENT RETURNED TO BED, CALL LIGHT IN REACH, VITAL SIGNS TAKEN. WNL. PATIENT IMMEDIATELY FALLS ASLEEP.
--- NOTE | 2017-02-24 11:55 | NUR ---
DR CONCEPCION IN TO SEE PATIENT, UPDATES PT ON EXPECTED DC TO [facility] ON SUNDAY. PATIENT HAS NO CONCERNS, ALL QUESTIONS ANSWERED. PATIENT'S BROTHER IN ROOM, EXPLAINS POC TO HIM ALSO.
--- NOTE | 2017-02-24 12:05 | NUR ---
REPOSITIONED PATIENT ON LEFT SIDE, TOLERATES REPOSITIONING POORLY. PATIENT CRIES OUT WHEN TOUCHED OR MOVED.
--- NOTE | 2017-02-24 13:18 | NUR ---
PATIENT SLEEPING IN NO DISTRESS.
--- NOTE | 2017-02-24 15:16 | NUR ---
assisted patient with urinal. patient having difficulty starting his stream. bladder scan shows 409. Dr hopson is aware. No new orders. Patient has history of urinary retention. Will continue to monitor.
--- NOTE | 2017-02-24 15:46 | NUR ---
Changed attends. Lynsey care done. Repositioned patient on left side.
--- NOTE | 2017-02-24 17:33 | NUR ---
Patient has had a busy day. This RN worked with patient and PT. Patient up to chair with sling and overhead lift. Patient is very tired, no energy to move. Patient has eaten breakfast and dinner, but only had ensure for lunch. Patient taking all meds by mouth, no iv site. MD is aware. Patient having difficulty voiding. MD is aware. Patient has history or urinary retention. Bladder scan showed 409. Patient has been incontinant and voided small amounts. Patient is severely deconditioned. Needs stregthening.
--- NOTE | 2017-02-24 18:01 | NUR ---
PATIENT INCONTINANT OF URINE AND STOOL TWICE, THIS RN DOES DEBORAH CARE AND CHANGES ATTENDS. PATIENT DOES NOT TOLERATE WELL. CRIES OUT WITH TOUCH OR MOVEMENT. SCROTUM REMAINS SLIGHTLY SWOLLEN. SKIN OTHERWISE INTACT. PLACED BARRIER CREAM TO COCCYX AND NYSTATIN POWDER TO GROIN. PLACED PATIENT ON RIGHT SIDE. CALL LIGHT IN REACH.
--- NOTE | 2017-02-24 18:32 | NUR ---
patient has another large liquid bm. changed attends, suzanne care done. patient repositioned for comfort.
--- NOTE | 2017-02-24 19:15 | NUR ---
REPORT RECEIVED FROM OFFGOING RN ARTURO. PT RESTING IN BED WITH EYES CLOSED, APPEARS TO BE SLEEPING. PT'S BROTHER AT BEDSIDE. CALL LIGHT IN PT'S HAND.
--- NOTE | 2017-02-24 19:51 | NUR ---
PT USES CALL LIGHT, WISHES TO BE REPOSITIONED. PT POSITIONED TO L SIDE, PROPPED WITH PILLOWS. PT SCREAMS OUT WHILE BEING MOVED. STATES THAT HE IS COMFORTABLE AFTER WARDS. PT ASSESSMENT COMPLETED. PT DENIES NEEDS AT THIS TIME. CALL LIGHT IN PT'S HAND.
--- NOTE | 2017-02-24 21:45 | NUR ---
PT UTILIZES CALL LIGHT REQUESTS TO BE REPOSITIONED. PT PROPPED WITH PILLOWS. DENIES OTHER NEEDS. CALL LIGHT IN HIS HAND.
--- NOTE | 2017-02-24 23:41 | NUR ---
PT RESTING IN BED WITH EYES CLOSED. RESPIRATIONS EVEN AND UNLABORED. PT APPEARS TO BE SLEEPING. CALL LIGHT WITHIN REACH.
--- NOTE | 2017-02-25 00:32 | NUR ---
PT SHOUTING "HELP". REQUESTS TO USE THE URINAL. PT ASSISTED TO USE THE URINAL DENIES OTHER NEEDS. CALL LIGHT IN PT'S HAND.
--- NOTE | 2017-02-25 02:03 | NUR ---
PT AGAIN SHOUTING HELP. STATES THAT HE NEEDS "MOVED". REMINDED PT THAT HE HAD BEEN MOVED APPROXIMATELY 30 MINUTES PRIOR. PT STATES THAT HE KNOWS, UNABLE TO VERBALIZE WHICH SIDE HE WOULD LIKE TO LAY ON. PT STATES THAT HE NEEDS TO BE ROLLED BACK AND FORTH. REMINDED PT THAT HE HAS BEEN TURNING EVERY 30 MINUTES. PT STATES UNDERSTANDING. ATTENDS CHANGED. PT TURNED TO R SIDE, PROPPED WITH PILLOWS. PT ASSESSMENT COMPLETED. PT DENIES PAIN WHEN ASKED. DENIES OTHER NEEDS AT THIS TIME. CALL LIGHT IN PT'S HAND.
--- NOTE | 2017-02-25 05:04 | NUR ---
PT WAKES FREQUENTLY THIS SHIFT, REQUESTING TO BE MOVED, USE URINAL, ETC. PT DROWSY, SLOW TO RESPOND TO QUESTIONS. NO REPORTS OF PAIN WHEN ASKED. PT INCONTINENT OF URINE. ATTENDS IN PLACE. VOIDING QS THIS SHIFT AFTER RETENTION YESTERDAY DAY SHIFT. 0 IV ACCESS. 2 PA/SELMA TRANSFER.
--- NOTE | 2017-02-25 06:51 | NUR ---
NO VITAL SIGNS TAKEN @ 6 A.M. PER NURSE.
--- NOTE | 2017-02-25 07:10 | NUR ---
REPORT RECEIVED FROM RN.
--- NOTE | 2017-02-25 08:16 | NUR ---
PT. WAS TRANSFERED FROM BED TO CHAIR WITH SELMA LIFT. BREAKFAST ORDERED. MORNING MEDICATIONS GIVEN: COREG HELD DUE TO HR OF 48. PT. HAS NO NEEDS AT THIS TIME. RT NOW AT BEDSIDE.
--- NOTE | 2017-02-25 09:22 | NUR ---
PT. SITTING IN CHAIR SPEAKING WITH SON. SHIFT ASSESSMENT DONE. PT. HAS NO NEEDS AT THIS TIME.
--- NOTE | 2017-02-25 11:05 | NUR ---
PT. IS SITTING IN CHAIR SPEAKING WITH VISITORS. DENIES PAIN. NO OTHER NEEDS AT THIS TIME.
--- NOTE | 2017-02-25 11:30 | NUR ---
Dr. Dobson in to see patient. Dressing on left great toe removed. Nail bed was clean and dry w/o signs of infection. New dressing applied to left great toe with gauze and coban. Pt. has no needs at this time.
--- NOTE | 2017-02-25 12:16 | NUR ---
PT. IS SITTING IN CHAIR SPEAKING WITH VISITORS. PT. HAS NO NEEDS AT THIS TIME.
--- NOTE | 2017-02-25 13:10 | NUR ---
Patient is laying in bed receiving neb treatment with RT. Afternoon medication given, assessment done. Patient has no needs at this time and is going to take a nap.
[2017-02-25] MEDS ORDERED: NICOTINE PATCH1 EAC1 TD (13:22)
[2017-02-25] MEDS ORDERED: FERROUS SULFAT325 MG PO (13:22)
[2017-02-25] MEDS ORDERED: SUCRALFATE1 GM PO (13:27)
[2017-02-25] MEDS ORDERED: PANTOPRAZOLE SO40 MG PO (13:27)
[2017-02-25] MEDS ORDERED: DESENEX43 GM TOP (13:28)
[2017-02-25] MEDS ORDERED: ASPERCREME 1035.4 GM TOP (13:38)
[2017-02-25] MEDS ORDERED: FOLIC ACID1 MG PO (13:39)
[2017-02-25] MEDS ORDERED: AMOX TR-K CLV1 EACH PO (13:45)
--- NOTE | 2017-02-25 13:45 | NUR ---
PT. ASLEEP IN BED.
--- NOTE | 2017-02-25 16:27 | NUR ---
PT. SLEEPING IN BED. MEDICATIONS GIVEN, PATIENT HAS NO REQUESTS AT THIS TIME.
--- NOTE | 2017-02-25 17:59 | NUR ---
PATIENT IS ASLEEP IN BED.
--- NOTE | 2017-02-25 18:06 | NUR ---
PT. HAS BEEN RESTING IN BED AND CHAIR THROUGHOUT SHIFT. VITALS HAVE BEEN STABLE. PT. COMPLAINS OF PAIN IN RIGHT ELBOW AND RIGHT FOOT; ASPERCREME USED FOR THE RIGHT ELBOW AND FOOT PAIN. NO PAIN MEDICATION ADMINISTERED. DRESSING ON LEFT GREAT TOE WAS REMOVED BY MD. NAILBED WAS CLEAN, DRY, AND SHOWED NO SIGNS OF INFECTION. GAUZE AND COBAN WAS APPLIED PER MD REQUEST. THERE WERE NO ACUTE CHANGES FROM THE BEGINNING OF SHIFT ASSESSMENT. INTENTIONAL ROUNDING DONE WITH PATIENT'S NEEDS MET.
--- NOTE | 2017-02-25 18:43 | NUR ---
PT. IS SLEEPING IN BED. CURBER INFORMED RN THAT PT. REFUSED DINNER. WILL PROMPT DINNER AGAIN AT SHIFT CHANGE.
--- NOTE | 2017-02-25 19:20 | NUR ---
BEDSIDE REPORT RECEIVED FROM OFFGOING NURSE. PT LYING IN BED RESTING WITH EYES CLOSED. CALL LIGHT WITHIN REACH.
--- NOTE | 2017-02-25 21:10 | NUR ---
PT ASSESSMENT COMPLETED. PT DENIES PAIN OR NAUSEA. LUNG CLEAR, DIM IN THE BASES. DRESSING TO L GREAT TOE C/D/I. PT REMAINS SLOW TO RESPOND TO QUESTIONS. DENIES NEEDS AT THIS TIME. CALL LIGHT WITHIN REACH.
--- NOTE | 2017-02-25 23:31 | NUR ---
PT UTILIZES CALL LIGHT, REQUESTS TO BE REPOSITIONED. PT TURNED TO R SIDE, PROPPED WITH PILLOWS. DENIES FURTHER NEEDS. CALL LIGHT WITHIN REACH.
--- NOTE | 2017-02-26 00:37 | NUR ---
PT CALLS TO BE REPOSITIONED, REPORTS THAT HE HAD DIARRHEA. PT'S ATTENDS CHANGED. SM GREEN SOFT BM. PT REPOSITIONED TO L SIDE AND PROPPED WITH PILLOWS. PT DENIES OTHER NEEDS. CALL LIGHT IN PT'S HAND.
--- NOTE | 2017-02-26 01:23 | NUR ---
PT REPOSITIONED TO R SIDE AND PROPPED WITH PILLOWS. PT DENIES OTHER NEEDS AT THIS TIME. CALL LIGHT WITHIN REACH.
--- NOTE | 2017-02-26 03:01 | NUR ---
PT USES CALL LIGHT, REQUESTS TO BE TURNED. PT TOLERATED WELL. REQUESTS TO USE URINAL. PT ASSESSMENT COMPLETE. UNCHANGED FROM PREVIOUS. PT DENIES PAIN, OTHER NEEDS AT THIS TIME. CALL LIGHT WITHIN REACH.
--- NOTE | 2017-02-26 05:03 | NUR ---
PT CALLING FREQUENTLY FOR REPOSITIONING AND URINAL. PT DENIES PAIN. ASPERCREME TO BACK AND R ELBOW. DRESSING TO L GREAT TOE C/D/I. INCONTINENCE, ATTENDS IN PLACE. LOW APPETITE, SUPPLEMENT WITH ENSURE. NO IV ACCESS.
--- NOTE | 2017-02-26 07:50 | NUR ---
pt sleeping during bedside report from Cherri VICK. Will attempt to get pt in to chair for each meal and keep awake during day to even out circadian rhythm.
--- NOTE | 2017-02-26 08:30 | NUR ---
PATIENT HOYERED UP TO SHOWER CHAIR 2 PERSON ASSIT. SHOWER DONE. LINENS CHANGED. PATIENT SITTING UP IN CHAIR WITH LEGS ELEVATED, WARM BLANKET, AND CALL BUTTON IN HAND. NO OTHER NEEDS AT THIS TIME.
--- NOTE | 2017-02-26 08:35 | NUR ---
pt up on shower chair attempting to have BM now. 2 CNAs in room changing linens and giving patient shower/cleaning his room. pt hoyered out of bed. will give am meds after shower.
--- NOTE | 2017-02-26 12:21 | NUR ---
FAXED UPDATED CLINICALS INCLUDING FACESHEET, NURSING/ MD NOTES AND PT NOTES TO [facility]
--- NOTE | 2017-02-26 13:21 | NUR ---
PT ATTEMPTED TO VOID X2. ABLE TO URINATE A TOTAL OF 150CC. BLADDER SCANNED AFTER FIRST 50CC AND VIEWED 446ML OF URINE IN BLADDER. ATTEND IN PLACE FOR DRIBBLING OR INCONTINENCE. PT SITTING UP IN RECLINER ALL MORNING. ATE 90% OF LUNCH. SEEMS TO BE MORE AWAKE AND COOPERATIVE WITH CARE TODAY.
--- NOTE | 2017-02-26 14:30 | NUR ---
ORAL CARE DONE. SHAVE DONE.
--- NOTE | 2017-02-26 16:08 | NUR ---
REPORT CALLED TO HENRIK VICK AT [facility]. ALL QUESTIONS ANSWERED.
--- NOTE | 2017-03-15 17:56 | CONS ---
[facility] [address] [place], [place] [address] Signed DATE OF CONSULTATION: 02/19/17 CONSULTING PHYSICIAN: Nelly Pena MD. REQUESTING PHYSICIAN: Dr. Dobson. PROBLEM Melena, anemia, alcohol abuse, recent alcohol withdrawal syndrome, consideration for upper endoscopy. HISTORY This 66-year-old white man is admitted on February 15, 2017, with a known history of persistent longstanding and intense daily alcohol intake. He has underlying chronic renal insufficiency and presented with weakness overall. He also was noted to have a cellulitic yeast infection in his groin. He drinks at least 5 glasses of whisky daily, 2 gallons weekly and smokes three-quarters pack of cigarettes daily. He was admitted by Dr. Watters with likely multifactorial cause of his weakness and anemia. Aspirin that he had been taking was discontinued. He is now under the care of Dr. Dboson who has assumed the role of hospitalist. He was noted to have very dark stool, considered likely melena at one point. He has undergone transfusion therapy and noted dominantly to have a hematocrit at admission of 20.7. Transfusion therapy has improved his hematocrit, but not markedly actually. Additional transfusion therapy has been undertaken. He has had no associated hematemesis. He had what appeared to be alcohol-related delirium, w hich is now much better controlled. He is attended by his brother currently as well. Consideration has been made for upper endoscopy on the basis of these findings. He is not known to have ulcer in the past, he says. Reliability of his providing history is uncertain, though his brother who attends to him seems to have some reasonable idea of his medical past. He has not had upper endoscopy in the past nor has he been known to have an ulcer. He has been getting ulcer prophylaxis with Protonix. REVIEW OF SYSTEMS He denies any chest pain at this time. He has had no dysphagia or hematemesis. He has had dark stool per rectum. PHYSICAL EXAMINATION GENERAL: A disheveled white man who is accompanied by his brother. The patient is sitting upright in bed, looks somewhat disoriented overall. He is interactive, however. VITAL SIGNS: His pulse currently is 84, respirations 18, blood pressure 198/97. He does not have tremulousness at this time. HEENT: Mucous membranes reasonably moist. Trachea is midline. CHEST: Normal respiratory excursion without tachypnea. Electronically Signed By: NELLY PENA MD 03/15/17 1756 PATIENT NAME: ARABELLA GUZMAN CONSULTATION DATE OF : 46 PHYSICIAN: NELLY PENA MD REPORT #: [id number] REPORT IS CONFIDENTIAL AND NOT TO BE RELEASED WITHOUT AUTHORIZATION [facility] [address] [place], [place] [address] Signed ABDOMEN: Somewhat distended and suggestive of nondiagnostic or possible ascites. Abdominal ultrasound performed on February 19 confirmed a fatty infiltration of the liver, mild common duct dilatation, and mild ascites. EXTREMITIES: Do not show edema. Minimal cyanosis may be considered possible. LABORATORY DATA Lab studies today show a white count of 6.2, hematocrit 23.5, platelets 108,000. Coag studies show pro-time at admission of 13.8 with an INR of 1.0. Urinalysis reasonably normal. Toxicology screen showing alcohol level of 56.9. There were no other illicit substances noted. A head CT performed on February 15 showed moderate diffuse brain parenchymal volume loss, but no acute intracranial abnormality nor sign of subdural hematoma. Chest x-ray performed on February 15 showed elevation of right hemidiaphragm and basilar atelectasis. ASSESSMENT He may well have an upper gastrointestinal source of bleeding accounting for his anemia. His anemia may be related to nutritiona l compromise too, as he appears to be a very avid and intensive drinker of alcohol. He has undergone some withdrawal symptoms, which are now improved. Upper endoscopy would be appropriate to assess for proximate source of gastrointestinal bleeding. If this is normal, colonic perforation may be necessary to allow for better determination of etiology of his anemia and dark black stool. The risks of bleeding, infection, and perforation were reviewed with the patient as well as his brother who was present. Whether or not he will be ready really to do this tomorrow remains to be seen. For now, we have established contact and an understanding of his overall underlying medical condition, which is significantly poor. I will see him tomorrow. We will make plans on the endoscopy according to his recovery from recent withdrawal syndrome. MD JAMES Fry/Harmanl /[id number] cc: Jorgito Dobson MD Electronically Signed By: NELLY PENA MD 03/15/17 1756 PATIENT NAME: ARABELLA GUZMAN CONSULTATION DATE OF : 46 PHYSICIAN: NELLY PENA MD REPORT #: [id number] REPORT IS CONFIDENTIAL AND NOT TO BE RELEASED WITHOUT AUTHORIZATION
--- NOTE | 2017-03-15 17:56 | OR ---
[facility] [address] [place], [place] [address] Signed DATE OF PROCEDURE: PREOPERATIVE DIAGNOSES Chronic alcoholism with severe anemia, history of melena, and alcohol-related delirium (resolving). POSTOPERATIVE DIAGNOSIS Severe erosive duodenitis without ulceration or active bleeding. PROCEDURE: Esophagogastroduodenoscopy with biopsy. SURGEON: Nelly Pena MD. ANESTHESIA: Propofol infusion, Juve Xiong CRNA. INDICATION This 66-year-old white man is a patient Dr. Dobson and was admitted on February 15, 2017 with weakness, electrolyte abnormalities and anemia. He is said to have had melena. He has had no hematemesis. He did suffer alcohol-related delirium which is now essentially cleared, though he has a marginal general baseline mental status overall. He has undergone transfusion therapy. He is not known to have ulcer disease in the past. He is admitted at this time to undergo upper endoscopy to better characterize the problem, understanding the risks of bleeding, infection, and perforation. FINDINGS There is no sign of esophageal varices or Raquel-Amin tear. The stomach had mild chronic gastritis but no ulceration or neoplasm. There was erosive duodenitis of the first portion of the duodenum, uncertain if it would have accounted for anemia in the past several days. There was no rock ulceration however. DESCRIPTION OF PROCEDURE The patient was brought to the endoscopy suite and given topical Hurricaine spray hypopharyngeal anesthesia and placed in lateral decubitus position. He was given intravenous sedation to the point of slurred speech and nystagmus with propofol infusional technique by the medical secretary with full cardiopulmonary monitoring. A bite block was placed. An Olympus video upper endoscope was passed in the hypopharynx. The vocal cords appeared normal. There was tenacious secretions of the hypopharynx however. The scope was advanced into the esophagus without problem. Throughout its length, it showed no evidence of ulceration or blood, Raquel-Amin tear or obvious varices. Further inspection later in exam continued to show no clear evidence of varices. Scope was passed to the stomach which was insufflated with air. Rugal folds appeared normal. There was mild chronic gastritis but no ulceration or neoplasm or blood. The pylorus was Electronically Signed By: NELLY PENA MD 03/15/17 1756 PATIENT NAME: ARABELLA GUZMAN OPERATIVE REPORT DATE OF : 46 PHYSICIAN: NELLY PENA MD REPORT #: [id number] REPORT IS CONFIDENTIAL AND NOT TO BE RELEASED WITHOUT AUTHORIZATION [facility] [address] [place], [place] [address] Signed relatively normal. Scope was passed through into the duodenum, immediately noted was an erosive duodenitis but no actual ulcer. Second and third portions appeared similar, but the dominant problems were in the duodenal bulb. Biopsies were obtained in these areas. The scope was withdrawn. Biopsies taken of the antrum for both ERIN and pathologic testing. Retroflex views undertaken showing no sign of Flaco ulcer or proximal gastric neoplasm or ulceration. The scope was straightened withdrawn to the distal esophagus and the mucosa appeared normal. There was no clear evidence of varices and biopsies were not obtained of this area. The scope was further withdrawn and inspection throughout showed no sign of abnormality otherwise. The scope was removed. The patient taken to recovery room in good condition. CONCLUDING DIAGNOSIS Erosive duodenitis. It is uncertain if this would account for his melena and anemia. If this was the healing phase of more severe inflammation, it is possible. I will review with Dr. Dobson whether or not a colonoscopic exam would be necessary, but I think for the time being given his overall medical condition, it would not be needed at this time. MD JAMES Fry/Harmanl /[id number] cc: Jorgito Dobson MD Electronically Signed By: NELLY PENA MD 03/15/17 1756 PATIENT NAME: ARABELLA GUZMAN OPERATIVE REPORT DATE OF : 46 PHYSICIAN: NELLY PENA MD REPORT #: [id number] REPORT IS CONFIDENTIAL AND NOT TO BE RELEASED WITHOUT AUTHORIZATION
== END 2017-02-26 15:45 | disposition home or self-care (01) | DRG 377 ==
LOC: ED 16:15 → CCU 18:33 → MS 18:33 → CCU 02-18 08:50 → MS 02-21 13:55
PROVIDERS: Surgery; ADMIT Internal Medicine
PROC: 30233N1 Transfusion of Nonautologous Red Blood Cells into Peripheral Vein, Percutaneous Approach (ICD-10-PCS; 2017-02-21)
PROC: 0DB98ZX Excision of Duodenum, Via Natural or Artificial Opening Endoscopic, Diagnostic (ICD-10-PCS; principal; 2017-02-21 14:45)
DX: K29.81 Duodenitis with bleeding (principal); J18.9 Pneumonia, unspecified organism; F10.231 Alcohol dependence with withdrawal delirium; N17.9 Acute kidney failure, unspecified; I13.0 Hypertensive heart and chronic kidney disease with heart failure and stage 1 through stage 4 chronic kidney disease, or unspecified chronic kidney disease; I48.92 Unspecified atrial flutter; J44.1 Chronic obstructive pulmonary disease with (acute) exacerbation; E87.2 Acidosis; E87.1 Hypo-osmolality and hyponatremia; D50.0 Iron deficiency anemia secondary to blood loss (chronic); N18.3 Chronic kidney disease, stage 3 (moderate); E83.42 Hypomagnesemia; D69.6 Thrombocytopenia, unspecified; R21 Rash and other nonspecific skin eruption
CPT/HCPCS: 00740; 36415; 36430; 51798; 70450; 71010; 73080; 73610; 76705; 80048; 80053; 80069; 80076; 81001; 82607; 82668; 82728; 82746; 83540; 83735; 83880; 84100; 84425; 84466; 84484; 85025; 85045; 85610; 86850; 86900; 86901; 86920; 88305; 93005; 93010; 94640; 94667; 94668; 94760; 94762; 97110; 97161; 97162; 97165; 97530; G0480; J1200; J2060; J2704; J3360; J3411; J3475; J7030; J7120; P9016